=== PATIENT | female | born 1975 | race Caucasian/White ===

== ENCOUNTER 2020-06-08 19:05 | Emergency (ER) | payer OTHER ==
[~2020-06-08 19:05] MED LIST: AUGMENTIN 875-1 EACH PO; BACTRIM DS TAB1 EACH PO; BACTROBAN OINT22 GM EXT; BENTYL 20MG TAB20 MG PO; BUSPAR 10MG10 MG PO; CLARITIN10 MG PO; CLONIDINE HCL0.3 MG PO; FLAGYL500 MG PO; IBUPROFEN800 MG PO; KEFLEX CAP 500500 MG PO; LEXAPRO5 MG PO; PHENERGAN 25 MG25 M1 PO; PRILOSEC OTC20 MG PO; SINGULAIR10 MG PO; WELLBUTRIN SR150 M1 PO; ZOFRAN ODT 4 MG4 MG PO; ZOFRAN ODT 4 MG4 MG SL
[2020-06-08] MEDS ORDERED: HYDROCODON-ACE1 EAC4 PO ×2 (19:42→20:31)
[2020-06-11] MEDS ORDERED: TRAZODONE HCL100 MG PO (11:23)
[2020-06-11] MEDS ORDERED: BENTYL 10MG CAP10 MG PO (11:23)
[2020-06-11] MEDS ORDERED: BIOTIN PO (11:24)
[2020-06-11] MEDS ORDERED: LEXAPRO10 MG PO (11:24)
[2020-06-11] MEDS ORDERED: TURMERIC CURCUMIN PO (11:25)
[2020-06-11] MEDS ORDERED: ZYRTEC10 MG PO (11:26)
[2020-06-11] MEDS ORDERED: WOMEN'S DAILY1 EAC1 PO (11:26)
[2020-06-11] MEDS ORDERED: HYDROCHLOROTHIA25 MG PO (11:27)
[2020-06-11] MEDS ORDERED: HYDROCODON-ACE1 EAC4 PO (11:28)
[2020-06-12] MEDS ORDERED: HYDROCODONE-ACET5 ML PO (13:49)
[2020-12-11] MEDS ORDERED: CLARITIN 10MG T10 MG PO (07:31)
[2020-12-11] MEDS ORDERED: METFORMIN HCL500 M2 PO (07:32)
[2020-12-11] MEDS ORDERED: HYDROCODON-ACE1 EAC4 PO (07:34)
[2020-12-11] MEDS ORDERED: FLONASE 0.05% N16 GM (07:35)
== END 2020-06-08 20:35 | disposition home or self-care (01) ==
LOC: ER1 19:05
DX: M72.2 Plantar fascial fibromatosis (principal); M77.32 Calcaneal spur, left foot; I10 Essential (primary) hypertension; Z88.2 Allergy status to sulfonamides
CPT/HCPCS: 96372; 99283; J1885; J2270

== ENCOUNTER → 2020-06-11 | Outpatient (CLI) | payer OTHER ==
[~2020-06-11] MED LIST changes: +BENTYL 10MG CAP10 MG PO; +BIOTIN PO; +CLARITIN 10MG T10 MG PO; +FLONASE 0.05% N16 GM; +HYDROCHLOROTHIA25 MG PO; +HYDROCODON-ACE1 EAC4 PO; +HYDROCODONE-ACET5 ML PO; +LEXAPRO10 MG PO; +METFORMIN HCL500 M2 PO; +TRAZODONE HCL100 MG PO; +TURMERIC CURCUMIN PO; +WOMEN'S DAILY1 EAC1 PO; +ZYRTEC10 MG PO
[2020-06-11 11:27] LABS: HEMOGLOBIN 13.4 gm/dl (12.3-15.3); RED BLOOD COUNT 4.8 M/UL (4.00-5.10); WHITE BLOOD COUNT 6.8 K/UL (4.5-11.0)
[2020-06-11 11:47] LABS: BUN/CREATININE RATIO 8 (0-10)
== END ==
LOC: OPSV2 10:00
PROVIDERS: Podiatrist Foot & Ankle Surgery
DX: Z01.812 Encounter for preprocedural laboratory examination (principal); M77.8 Other enthesopathies, not elsewhere classified
CPT/HCPCS: 36415; 80048; 85027

== ENCOUNTER → 2020-06-12 | Day surgery (SDC) | payer OTHER ==
[~2020-06-12] VITALS: Ht 162.6 cm; Wt 103.0 kg
== END | disposition home or self-care (01) ==
LOC: OR 06:36
PROVIDERS: Podiatrist Foot & Ankle Surgery
PROC: 0HRNXK3 Replacement of Left Foot Skin with Nonautologous Tissue Substitute, Full Thickness, External Approach (ICD-10-PCS; 2020-06-12)
PROC: 0SBG4ZZ Excision of Left Ankle Joint, Percutaneous Endoscopic Approach (ICD-10-PCS; principal; 2020-06-12 09:30)
PROC: 0MQR0ZZ Repair Left Ankle Bursa and Ligament, Open Approach (ICD-10-PCS; 2020-06-12 09:30)
PROC: 0J8R0ZZ Division of Left Foot Subcutaneous Tissue and Fascia, Open Approach (ICD-10-PCS; 2020-06-12 09:30)
DX: M72.2 Plantar fascial fibromatosis (principal); M25.372 Other instability, left ankle; M77.32 Calcaneal spur, left foot; I10 Essential (primary) hypertension; J30.2 Other seasonal allergic rhinitis; K21.9 Gastro-esophageal reflux disease without esophagitis; F41.8 Other specified anxiety disorders; Z88.2 Allergy status to sulfonamides; Z79.899 Other long term (current) drug therapy; Z86.16 Personal history of COVID-19
CPT/HCPCS: 73620; 76000; C1713; J0171; J0690; J1100; J1885; J2001; J2250; J2405; J2704; J2795; J3010; J3370; J7120; Q4133

== ENCOUNTER → 2020-09-30 | Outpatient (CLI) | payer OTHER | LOC: MAMO 06-18 15:00 | DX: Z12.31 Encounter for screening mammogram for malignant neoplasm of breast (principal) | CPT/HCPCS: 77063; 77067 ==

== ENCOUNTER → 2020-12-11 | Day surgery (SDC) | payer OTHER ==
[~2020-12-11] VITALS: Ht 162.6 cm; Wt 97.5 kg
[2020-12-11 07:51] LABS: HEMOGLOBIN 12.3 gm/dl (12.3-15.3); RED BLOOD COUNT 4.44 M/UL (4.00-5.10); WHITE BLOOD COUNT 8.5 K/UL (4.5-11.0)
[2020-12-11 08:00] LABS: BUN/CREATININE RATIO 14 (0-10)
== END | disposition home or self-care (01) ==
LOC: OR 06:19
PROVIDERS: Podiatrist Foot & Ankle Surgery
DX: T84.84XA Pain due to internal orthopedic prosthetic devices, implants and grafts, initial encounter (principal); G89.18 Other acute postprocedural pain; M24.272 Disorder of ligament, left ankle; K21.9 Gastro-esophageal reflux disease without esophagitis; E66.01 Morbid (severe) obesity due to excess calories; F41.9 Anxiety disorder, unspecified; F32.9 Major depressive disorder, single episode, unspecified; Z88.2 Allergy status to sulfonamides; Z88.6 Allergy status to analgesic agent
CPT/HCPCS: 36415; 80048; 85027; C1713; J0690; J1100; J1170; J1885; J2001; J2250; J2405; J2704; J2795; J3010; J3370; J7120

== ENCOUNTER 2021-05-11 15:01 | Emergency (ER) | payer OTHER ==
[2021-05-11] MEDS ORDERED: HYDROCODON-ACE1 EAC4 PO (16:00)
[2021-05-11] MEDS ORDERED: GABAPENTIN300 MG PO (16:00)
[2021-05-11] MEDS ORDERED: HIGH POTENCY42.5 GM TP (16:00)
== END 2021-05-11 16:16 | disposition home or self-care (01) ==
LOC: ER1 15:01
DX: B02.9 Zoster without complications (principal); E11.9 Type 2 diabetes mellitus without complications; I10 Essential (primary) hypertension; Z88.2 Allergy status to sulfonamides
CPT/HCPCS: 99282

== ENCOUNTER → 2021-06-12 | Outpatient (CLI) | payer BC, OTHER ==
[~2021-06-12] MED LIST changes: +GABAPENTIN300 MG PO; +HIGH POTENCY42.5 GM TP
== END ==
LOC: KOH-I 06-10 11:00
DX: M25.572 Pain in left ankle and joints of left foot (principal); S93.402A Sprain of unspecified ligament of left ankle, initial encounter; W23.0XXA Caught, crushed, jammed, or pinched between moving objects, initial encounter; Z98.890 Other specified postprocedural states
CPT/HCPCS: 73721

== ENCOUNTER → 2021-07-03 | Outpatient (CLI) | payer BC, OTHER ==
[~2021-07-03] MED LIST changes: +WELLBUTRIN XL150 MG PO
[2021-07-03 09:07] LABS: HEMOGLOBIN 13.2 gm/dl (12.3-15.3); RED BLOOD COUNT 4.7 M/UL (4.00-5.10); WHITE BLOOD COUNT 8.1 K/UL (4.5-11.0)
[2021-07-03 09:42] LABS: BUN/CREATININE RATIO 12 (0-10)
== END ==
LOC: OPSV2 08:00
PROVIDERS: Podiatrist Foot & Ankle Surgery
DX: Z01.812 Encounter for preprocedural laboratory examination (principal); S93.492A Sprain of other ligament of left ankle, initial encounter
CPT/HCPCS: 80048; 83036; 85027

== ENCOUNTER → 2021-07-09 | Day surgery (SDC) | payer BC, OTHER ==
[~2021-07-09] VITALS: Ht 162.6 cm; Wt 98.4 kg
[2021-07-09 09:15] LABS: BUN/CREATININE RATIO 17 (0-10)
== END | disposition home or self-care (01) ==
LOC: OR 07:44
PROVIDERS: Podiatrist Foot & Ankle Surgery
DX: S93.432A Sprain of tibiofibular ligament of left ankle, initial encounter (principal); M25.372 Other instability, left ankle; I10 Essential (primary) hypertension; E11.9 Type 2 diabetes mellitus without complications; Z20.822 Contact with and (suspected) exposure to COVID-19; Z88.2 Allergy status to sulfonamides; X58.XXXA Exposure to other specified factors, initial encounter
CPT/HCPCS: 36415; 73600; 76000; 80048; 82962; C1713; J0690; J1100; J1170; J1885; J2001; J2250; J2270; J2405; J2550; J2704; J2795; J3010; J3370; J7030; J7120

== ENCOUNTER 2021-09-15 10:22 | Emergency (ER) | payer BC, OTHER ==
[2021-09-15 11:33] LABS: HEMOGLOBIN 14.1 gm/dl (12.3-15.3); RED BLOOD COUNT 5.04 M/UL (4.00-5.10); WHITE BLOOD COUNT 10.6 K/UL (4.5-11.0)
[2021-09-15 11:52] LABS: BUN/CREATININE RATIO 12 (0-10)
== END 2021-09-15 13:29 | disposition home or self-care (01) ==
LOC: ER1 10:22
PROVIDERS: Physician Assistant
DX: M25.572 Pain in left ankle and joints of left foot (principal); E11.9 Type 2 diabetes mellitus without complications; I10 Essential (primary) hypertension; Z88.2 Allergy status to sulfonamides
CPT/HCPCS: 73610; 80053; 85025; 85652; 86140; 96372; 99283; J1885

== ENCOUNTER 2022-01-18 08:56 | Emergency (ER) | payer BC, OTHER ==
[2022-01-18] MEDS ORDERED: VOLTAREN ARTHRI20 GM TP (09:28)
[2022-01-18] MEDS ORDERED: VALIUM5 MG PO (09:28)
== END 2022-01-18 09:40 | disposition home or self-care (01) ==
LOC: ER1 08:56
DX: M79.2 Neuralgia and neuritis, unspecified (principal); G89.29 Other chronic pain; I10 Essential (primary) hypertension; E11.9 Type 2 diabetes mellitus without complications; K21.9 Gastro-esophageal reflux disease without esophagitis
CPT/HCPCS: 99283

== ENCOUNTER → 2022-02-03 | Day surgery (SDC) | payer BC, OTHER ==
[~2022-02-03] MED LIST changes: +CLARITIN10 M2 PO; +ESCITALOPRAM OX10 MG PO; +HYDROCHLOROTH12.5 M1 PO; +LIPITOR40 MG PO; +MELOXICAM15 MG PO; +OMEPRAZOLE20 MG PO; +VALIUM5 MG PO; +VOLTAREN ARTHRI20 GM TP
== END | disposition home or self-care (01) ==
LOC: OR 07:27
DX: K31.9 Disease of stomach and duodenum, unspecified (principal); K57.30 Diverticulosis of large intestine without perforation or abscess without bleeding; K58.2 Mixed irritable bowel syndrome; E66.01 Morbid (severe) obesity due to excess calories; I10 Essential (primary) hypertension; E11.9 Type 2 diabetes mellitus without complications; K21.9 Gastro-esophageal reflux disease without esophagitis; Z68.38 Body mass index [BMI] 38.0-38.9, adult; Z88.2 Allergy status to sulfonamides
CPT/HCPCS: 82962; J2250; J2704; J3010